=== PATIENT | female | born 1990 | race Caucasian/White ===

== ENCOUNTER 2025-01-14 13:26 | Emergency (ER) | payer OTHER, SELFPAY ==
--- NOTE | ~2025-01-14 | US_ITS ---
EXAMINATION: US OB <=14 wk fetus w TV INDICATION: bleeding, TECHNIQUE: Sonography of the pelvis was performed by transabdominal and transvaginal techniques. COMPARISON: None. RESULT: Uterus: 11.2 x 5.6 x 5.9 cm. Anteverted. Irregular appearing myometrium. 1.1 cm hypoechoic rounded fo cus in the anterior uterine body, possibly representing a small fibroid. Irregular material noted in the endometrial and endocervical canal. Hypoechoic focus in the lower uterine segment/upper cervix li nelly representing a nabothian cyst or prominent vein. Intrauterine gestational sac: A candidate gestational sac is present, with somewhat elongated morpho logy. Mean Sac Diameter: 0.54 cm, corresponding gestational age 5 week 2 days. Yolk sac: Not visuali zed. Embryo: Not seen. Subgestational hematoma: Irregular mixed echogenicity focus adjacent to the candidate gestational sac measuring 2.1 x 1.6 x 2.4 cm. Right ovary: 1.9 x 1.5 x 1.3 cm. Vascular flow was difficult to visualize due to the ovarian positi on. No adnexal mass. Left ovary: 3.0 x 2.6 x 2.8 cm. Vascular flow is present. Smoothly marginated, thin-walled cystic structure in the left ovary measuring up to 2.0 cm, with moderate surrounding vascular flow and an av ascular irregular focus adherent to the cyst wall. Pelvis free fluid: None. IMPRESSION: Likely intrauterine , of uncertain viability. A candidate gestational sac is noted. Estimate d Gestational Age: 5 weeks, 2 days by crown rump length. ROBERTO by ultrasound 09/06/2025. Recommend mercy se clinical and sonographic follow-up. 2.1 cm subcutaneous gestational hematoma. Small uterine fibroid. Heterogeneous material in the endometrial and endocervical canal, likely representing blood. Nonsimple 2.0 cm left ovarian cystic lesion, may represent an atypical corpus luteal cyst, or resolvi ng hemorrhagic cyst with clot. Imaging features are not classic for the rare entity of ovarian ectopi c . Recommend attention and follow-up examinations. Simple 1.0 cm left adnexal cyst, may represent an exophytic simple ovarian cyst, paraovarian cyst, or other simple appearing cystic lesion. Again, the imaging features this lesion are not classic for ec topic . Reviewed, dictated and finalized at location K. IMPRESSION: Likely intrauterine , of uncertain viability. A candidate gestational sac is noted. Estimated Gestational Age: 5 weeks, 2 days by crown rump length. ROBERTO by ultrasound 09/06/2025. Recommend close clinical and sonographic follow- up. 2.1 cm subcutaneous gestational hematoma. Small uterine fibroid. Heterogeneous material in the endometrial and endocervical canal, likely repres enting blood. Nonsimple 2.0 cm left ovarian cystic lesion, may represent an atypical corpus l uteal cyst, or resolving hemorrhagic cyst with clot. Imaging features are not c lassic for the rare entity of ovarian ectopic . Recommend attention an d follow-up examinations. Simple 1.0 cm left adnexal cyst, may represent an exophytic simple ovarian cyst , paraovarian cyst, or other simple appearing cystic lesion. Again, the imaging features this lesion are not classic for ectopic .
[2025-01-14 14:07] VITALS: BP 147/72; PULSE 80; RESP 16; TEMP 36.3; O2SAT 100
--- NOTE | 2025-01-14 14:53 | ED_ITS ---
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 Currently about 6 weeks . Has her first appointment next Monday. GENERAL: Well-appearing, well-nourished, and in no acute distress. HEAD: Normocephalic, atraumatic. CHEST: Clear to auscultation. ?No respiratory distress. HEART: Regular rate and rhythm.? NEURO: ?Alert and oriented x3. Patient screened in triage and initial orders placed.? ?Additional care and disposition to be based upon?diagnostic testing and treatment. <Tatiana Fay PA-C - Last Filed: 01/14/25 19:30> History of Present Illness HPI Narrative: Agree with HPI. White spotting yesterday but increased today. Left adnexal cramping that occurs typically with her menstrual cycle. . <Dylon Maza MD - Last Filed: 01/14/25 18:59> Related Data Allergies/Adverse reactions: Allergies Allergy/AdvReac Type Severity Reaction Status Date / Time No Known Allergies Allergy Verified 01/14/25 13:28 <Tatiana Fay PA-C - Last Filed: 01/14/25 19:30> Review of Systems 2 Review of Systems: All systems reviewed & are unremarkable except as noted in HPI and below <Dylon Maza MD - Last Filed: 01/14/25 18:59> Constitutional: Constitutional: Reports no additional constitutional complaints <Dylon Maza MD - Last Filed: 01/14/25 18:59> Gastrointestinal: Gastrointestinal: Reports no additional gastrointestinal complaints <Dylon Maza MD - Last Filed: 01/14/25 18:59> Genitourinary: Genitourinary: Reports no additional female genitourinary complaints <Dylon Maza MD - Last Filed: 01/14/25 18:59> Musculoskeletal: Musculoskeletal: Reports no additional musculoskeletal complaints <Dylon Maza MD - Last Filed: 01/14/25 18:59> PMFSH Past Medical History Medical History: Medical History (Updated 01/14/25 @ 18:56 by Dylon Maza MD) Healthy female adult <Tatiana Fay PA-C - Last Filed: 01/14/25 19:30> Surgical History Surgical History: Surgical History (Updated 01/14/25 @ 18:52 by Dylon Maza MD) No pertinent past surgical history <Tatiana Fay PA-C - Last Filed: 01/14/25 19:30> Exam 2 Narrative: GENERAL: Well-appearing, well-nourished, and in no acute distress. HEAD: Normocephalic, atraumatic. ENT: Mucous membranes moist. CHEST: Clear to auscultation. No respiratory distress. HEART: Regular rate and rhythm. Normal peripheral pulses. ABDOMEN: Soft, nontender, nondistended. Pelvic: Normal external genitalia. 5 cm clot removed from the cervix resulting in a polyp poking through the cervical os. No additional hemorrhage. No discharge. EXTREMITIES: Normal range of motion. No edema. SKIN: Warm, dry, no rash. NEURO: Alert and oriented x3. <Dylon Maza MD - Last Filed: 01/14/25 18:59> Course Course Emergency Course: Discussed with Dr. Slaughter for. Repeat beta hCG in 2 days. Needs follow-up in clinic. Discussed treatment plan with patient's significant other. Discussed need for blood work and close follow-up. Discussed bleeding precautions. <Dylon Maza MD - Last Filed: 01/14/25 18:59> Vital Signs Vital signs: Vital Signs Temperature 97.3 F L 01/14/25 14:07 Pulse Rate 80 01/14/25 14:07 Respiratory Rate 16 01/14/25 14:07 Blood Pressure 147/72 H 01/14/25 14:07 Pulse Oximetry 100 01/14/25 14:07 Temperature 97.3 F L 01/14/25 14:07 Pulse Rate 88 01/14/25 18:27 Respiratory Rate 14 01/14/25 18:27 Blood Pressure 126/69 01/14/25 18:27 Pulse Oximetry 100 01/14/25 18:27 <Tatiana Fay PA-C - Last Filed: 01/14/25 19:30> Vital Signs Temperature 97.3 F L 01/14/25 14:07 Pulse Rate 80 01/14/25 14:07 Respiratory Rate 16 01/14/25 14:07 Blood Pressure 147/72 H 01/14/25 14:07 Pulse Oximetry 100 01/14/25 14:07 Temperature 97.3 F L 01/14/25 14:07 Pulse Rate 88 01/14/25 18:27 Respiratory Rate 14 01/14/25 18:27 Blood Pressure 126/69 01/14/25 18:27 Pulse Oximetry 100 01/14/25 18:27 <Dylon Maza MD - Last Filed: 01/14/25 18:59> MDM - OB/Uterine Contractions Lab Data Result diagrams: 01/14/25 15:30 01/14/25 15:30 <Tatiana Fay PA-C - Last Filed: 01/14/25 19:30> Labs: Lab Results 01/14/25 Range/Units 15:30 WBC 12.2 H (4.5-10.0) K/mm3 RBC 4.36 (4.2-5.4) M/mm3 Hgb 13.3 (12.0-15.0) g/dL Hct 41.2 (37.0-47.0) % MCV 94.5 (80-100) fl MCH 30.5 (26-34) pg MCHC 32.3 (32-36) g/dl RDW 13.7 (11.5-14.5) % Plt Count 316 (150-375) k/mm3 MPV 9.3 (7.4-10.4) fl Immature Gran % (Auto) 0.5 (0-0.5) % Neut % (Auto) 69.0 (45.5-73.1) % Lymph % (Auto) 22.7 (18.3-44.2) % [place] % (Auto) 5.8 (2.6-8.5) % Eos % (Auto) 1.5 (0-4.4) % Baso % (Auto) 0.5 (0.2-1.2) % Lymph # (Auto) 2.77 (0.9-3.2) K/mm3 [place] # (Auto) 0.7 H (0.1-0.6) K/mm3 Eos # (Auto) 0.2 (0-0.3) K/mm3 Baso # (Auto) 0.1 (0.0-0.1) K/mm3 Abs Immat Gran (auto) 0.06 H (0.00-0.031) K/mm3 Absolute Neuts (auto) 8.4 H (1.3-6.7) K/mm3 Absolute Nucleated RBC 0.000 (0.0-0.012) K/mm3 Nucleated RBC % 0.0 (0.0-0.2) % PT 12.3 (11.1-14.7) Seconds INR 0.9 APTT 25.0 (22.3-36.8) Seconds Sodium 137 (137-145) mmol/L Potassium 4.2 (3.4-5.0) mmol/L Chloride 102 (98-107) mmol/L Carbon Dioxide 23 (22-30) mmol/L Anion Gap 12 (4-12) mmol/L BUN 8 (7-17) mg/dL Creatinine 0.52 L (0.7-1.0) mg/dL Estim Creat Clear Calc 103 ml/min Estimated GFR > 60 (59 - ) Glucose 112 H (65-110) mg/dL Calcium 9.9 (8.4-10.2) mg/dL Total Bilirubin 0.3 (0.2-1.3) mg/dL AST 17 (14-36) U/L ALT 17 (6-35) U/L Alkaline Phosphatase 77 (38-126) U/L Total Protein 8.0 (6.3-8.2) g/dL Albumin 4.9 (3.5-5.1) g/dL Beta HCG, Quant 7176.30 mIU/ML Blood Type B Positive Antibody Screen Negative Screen Not Reportable Baby's Blood Type Not Reportable Baby's CICI Not Reportable Doses of RhIg Required 0 <Tatiana Fay PA-C - Last Filed: 01/14/25 19:30> Lab Results 01/14/25 Range/Units 15:30 WBC 12.2 H (4.5-10.0) K/mm3 RBC 4.36 (4.2-5.4) M/mm3 Hgb 13.3 (12.0-15.0) g/dL Hct 41.2 (37.0-47.0) % MCV 94.5 (80-100) fl MCH 30.5 (26-34) pg MCHC 32.3 (32-36) g/dl RDW 13.7 (11.5-14.5) % Plt Count 316 (150-375) k/mm3 MPV 9.3 (7.4-10.4) fl Immature Gran % (Auto) 0.5 (0-0.5) % Neut % (Auto) 69.0 (45.5-73.1) % Lymph % (Auto) 22.7 (18.3-44.2) % [place] % (Auto) 5.8 (2.6-8.5) % Eos % (Auto) 1.5 (0-4.4) % Baso % (Auto) 0.5 (0.2-1.2) % Lymph # (Auto) 2.77 (0.9-3.2) K/mm3 [place] # (Auto) 0.7 H (0.1-0.6) K/mm3 Eos # (Auto) 0.2 (0-0.3) K/mm3 Baso # (Auto) 0.1 (0.0-0.1) K/mm3 Abs Immat Gran (auto) 0.06 H (0.00-0.031) K/mm3 Absolute Neuts (auto) 8.4 H (1.3-6.7) K/mm3 Absolute Nucleated RBC 0.000 (0.0-0.012) K/mm3 Nucleated RBC % 0.0 (0.0-0.2) % PT 12.3 (11.1-14.7) Seconds INR 0.9 APTT 25.0 (22.3-36.8) Seconds Sodium 137 (137-145) mmol/L Potassium 4.2 (3.4-5.0) mmol/L Chloride 102 (98-107) mmol/L Carbon Dioxide 23 (22-30) mmol/L Anion Gap 12 (4-12) mmol/L BUN 8 (7-17) mg/dL Creatinine 0.52 L (0.7-1.0) mg/dL Estim Creat Clear Calc 103 ml/min Estimated GFR > 60 (59 - ) Glucose 112 H (65-110) mg/dL Calcium 9.9 (8.4-10.2) mg/dL Total Bilirubin 0.3 (0.2-1.3) mg/dL AST 17 (14-36) U/L ALT 17 (6-35) U/L Alkaline Phosphatase 77 (38-126) U/L Total Protein 8.0 (6.3-8.2) g/dL Albumin 4.9 (3.5-5.1) g/dL Beta HCG, Quant 7176.30 mIU/ML Blood Type B Positive Antibody Screen Negative Screen Not Reportable Baby's Blood Type Not Reportable Baby's CICI Not Reportable Doses of RhIg Required 0 <Dylon Maza MD - Last Filed: 01/14/25 18:59> Imaging Data Radiologist's impression: ITS Impressions Obstetrics Ultrasound 01/14/25 17:33 IMPRESSION: Likely intrauterine , of uncertain viability. A candidate gestational sac is noted. Estimated Gestational Age: 5 weeks, 2 days by crown rump length. ROBERTO by ultrasound 09/06/2025. Recommend close clinical and sonographic follow- up. 2.1 cm subcutaneous gestational hematoma. Small uterine fibroid. Heterogeneous material in the endometrial and endocervical canal, likely representing blood. Nonsimple 2.0 cm left ovarian cystic lesion, may represent an atypical corpus luteal cyst, or resolving hemorrhagic cyst with clot. Imaging features are not classic for the rare entity of ovarian ectopic . Recommend attention and follow-up examinations. Simple 1.0 cm left adnexal cyst, may represent an exophytic simple ovarian cyst, paraovarian cyst, or other simple appearing cystic lesion. Again, the imaging features this lesion are not classic for ectopic . <Dylon Maza MD - Last Filed: 01/14/25 18:59> Critical Care Time Critical Care Time Critical Care Time: No <Tatiana Fay PA-C - Last Filed: 01/14/25 19:30> Discharge Plan Discharge Clinical Impression: Threatened miscarriage <Tatiana Fay PA-C - Last Filed: 01/14/25 19:30> Patient Disposition: Home <Tatiana Fay PA-C - Last Filed: 01/14/25 19:30> Condition: Stable <Tatiana Fay PA-C - Last Filed: 01/14/25 19:30> Instructions: Threatened Miscarriage (ED) <Tatiana Fay PA-C - Last Filed: 01/14/25 19:30> Additional Instructions: Follow-up with OB, you need repeat blood work in 2 days. Return ER if you have severe lower abdominal pain, you lose consciousness, or you have additional concerns. <Tatiana Fay PA-C - Last Filed: 01/14/25 19:30> Patient Language: Grenadian <Tatiana Fay PA-C - Last Filed: 01/14/25 19:30> Other Ambulatory Orders: Beta HCG Quantitative (Routine) Timeframe: 20250116 Facility: [facility] - Location: [facility] Laboratory Ordered By: Dylon Maza <Tatiana Fay PA-C - Last Filed: 01/14/25 19:30> Follow-up/Referrals: Bryant Smalls MD [Physician] - 3 Days PHYSICIAN,SENIOR CORPORATE RECRUITER [Non-Staff] - <Tatiana Fay PA-C - Last Filed: 01/14/25 19:30>
[2025-01-14 15:38] LABS: Basophils Absolute Auto 0.1 K/mm3 (0.0-0.1); Basophils Percent Auto 0.5 % (0.2-1.2); Eosinophils Absolute Auto 0.2 K/mm3 (0-0.3); Eosinophils Percent Auto 1.5 % (0-4.4); Hematocrit 41.2 % (37.0-47.0); Hemoglobin 13.3 g/dL (12.0-15.0); Immature Granulocyte Absolute 0.06 K/mm3 (0.00-0.031); Immature Granulocyte Percent A 0.5 % (0-0.5); Lymphocytes Absolute Auto 2.77 K/mm3 (0.9-3.2); Lymphocytes Percent Auto 22.7 % (18.3-44.2); Mean Corpuscular HGB Conc 32.3 g/dl (32-36); Mean Corpuscular Hemoglobin 30.5 pg (26-34); Mean Corpuscular Volume 94.5 fl (80-100); Mean Platelet Volume 9.3 fl (7.4-10.4); Monocytes Absolute Auto 0.7 K/mm3 (0.1-0.6); Monocytes Percent Auto 5.8 % (2.6-8.5); Neutrophils Absolute Auto 8.4 K/mm3 (1.3-6.7); Platelet Count Result 316 k/mm3 (150-375); Red Blood Count 4.36 M/mm3 (4.2-5.4); Red Cell Distribution Width 13.7 % (11.5-14.5); White Blood Count 12.2 K/mm3 (4.5-10.0)
[2025-01-14 15:48] LABS: Alanine Aminotransferase 17 U/L (6-35); Albumin Level 4.9 g/dL (3.5-5.1); Alkaline Phosphatase 77 U/L (38-126); Anion Gap 12 mmol/L (4-12); Aspartate Amino Transferase 17 U/L (14-36); Bilirubin,Total 0.3 mg/dL (0.2-1.3); Blood Urea Nitrogen 8 mg/dL (7-17); Calcium 9.9 mg/dL (8.4-10.2); Carbon Dioxide 23 mmol/L (22-30); Chloride 102 mmol/L (98-107); Estimated CRCL calculation 103 ml/min; Estimated Glomerular Filt Rate > 60; Glucose 112 mg/dL (65-110); Potassium 4.2 mmol/L (3.4-5.0); Sodium 137 mmol/L (137-145)
[2025-01-14 15:49] LABS: INR 0.9; Prothrombin Time 12.3 Seconds (11.1-14.7)
[2025-01-14 18:27] VITALS: BP 126/69; PULSE 88; RESP 14; O2SAT 100
== END 2025-01-14 19:14 | disposition home or self-care (01) ==
PROVIDERS: Physician Assistant; Emergency Provider Emergency Medicine
DX: O20.0 Threatened abortion (principal); Z3A.01 Less than 8 weeks gestation of pregnancy
CPT/HCPCS: 36415; 76801; 76817; 80053; 84702; 85025; 85461; 85610; 85730; 86850; 86900; 86901; 99284

== ENCOUNTER 2025-01-16 08:16 | Outpatient (CLI) | payer OTHER, SELFPAY | END 2025-01-16 08:17 | disposition home or self-care (01) | PROVIDERS: Visit Provider Emergency Medicine | DX: O20.0 Threatened abortion (principal); Z3A.00 Weeks of gestation of pregnancy not specified | CPT/HCPCS: 36415; 84702 ==

== ENCOUNTER 2025-01-22 10:10 | Outpatient (CLI) | payer OTHER, SELFPAY ==
--- NOTE | ~2025-01-22 | US_ITS ---
Pelvic ultrasound. Clinical History: Threatened , first trimester Technique: Realtime transabdominal and transvaginal scanning of the pelvis was performed. Color flow Doppler and Doppler spectral analysis were performed. Findings: The uterus is anteverted, and contains an intrauterine gestational sac. [place]-rump length o f 0.36 cm corresponds to an estimated gestational age of 6 weeks 0 days. heart rate is 106 bpm. Small subchronic hemorrhage measures 9 mm in maximal extent. The right ovary is not visualized. No significant right ovarian or adnexal mass is seen. The left ovary measures 4.5 x 2.7 x 3.3 cm. No significant left ovarian or adnexal mass is seen. There is no evidence of free fluid in the cul de sac. Impression: Live intrauterine gestation, with estimated gestational age of 6 weeks 0 days. heart rate is 10 6 bpm. Relative bradycardia may be related to early gestational age. Consider follow-up exam in 5-7 d ays to reassess cardiac activity. Small subchronic hemorrhage, as detailed above. Reviewed, dictated and finalized at location . Impression: Live intrauterine gestation, with estimated gestational age of 6 weeks 0 days. heart rate is 106 bpm. Relative bradycardia may be related to early gesta tional age. Consider follow-up exam in 5-7 days to reassess cardiac activity. Small subchronic hemorrhage, as detailed above.
== END 2025-01-22 10:11 | disposition home or self-care (01) ==
PROVIDERS: PCP Obstetrics & Gynecology; Visit Provider Obstetrics & Gynecology
DX: O20.0 Threatened abortion (principal); Z3A.01 Less than 8 weeks gestation of pregnancy
CPT/HCPCS: 76801; 76817

== ENCOUNTER 2025-02-07 10:16 | Outpatient (CLI) | payer OTHER, SELFPAY ==
--- NOTE | ~2025-02-07 | US_ITS ---
Pelvic ultrasound. Clinical History: First trimester for subchronic hemorrhage COMPARISON: 01/22/2025 Technique: Realtime transabdominal and transvaginal scanning of the pelvis was performed. Color flow Doppler and Doppler spectral analysis were performed. Findings: The uterus is anteverted, and contains an intrauterine gestation. [place]-rump length of 1.8 cm corresponds to an estimated gestational age of 8 weeks 1 day. heart rate is 176 bpm. Suggest ion of a somewhat ill-defined subchorionic hemorrhage measuring up to 13 mm in greatest diameter. The right ovary is not visualized. No significant right ovarian or adnexal mass is seen. The left ovary measures 2.7 x 2.4 x 2.4 cm. No significant left ovarian or adnexal mass is seen. There is no evidence of free fluid in the cul de sac. Impression: Live intrauterine gestation, with estimated gestational age of 8 weeks 1 day. heart rate is 176 bpm. Probable small subchorionic hemorrhage, as detailed above. Reviewed, dictated and finalized at location M. Impression: Live intrauterine gestation, with estimated gestational age of 8 weeks 1 day. F etal heart rate is 176 bpm. Probable small subchorionic hemorrhage, as detailed above.
== END 2025-02-07 10:17 | disposition home or self-care (01) ==
LOC: GOSHIMG 10:17
PROVIDERS: PCP Obstetrics & Gynecology; Visit Provider Obstetrics & Gynecology
DX: Z34.91 Encounter for supervision of normal pregnancy, unspecified, first trimester (principal); Z3A.08 8 weeks gestation of pregnancy
CPT/HCPCS: 76801

== ENCOUNTER 2025-07-08 10:02 | Outpatient (CLI) | payer OTHER, SELFPAY ==
[2025-07-08] VITALS (7 sets, daily range): BP systolic 108–121; BP diastolic 53–70; PULSE 71–78
[2025-07-08 10:55] LABS: Hematocrit 35.4 % (37.0-47.0); Hemoglobin 12.1 g/dL (12.0-15.0); Immature Granulocyte Percent A 0.5 % (0-0.5); Immature Platelet Fraction Pct 3.1 % (0.9-11.2); Lymphocytes Absolute Auto 1.78 K/mm3 (0.9-3.2); Mean Corpuscular HGB Conc 34.2 g/dl (32-36); Mean Corpuscular Hemoglobin 33.2 pg (26-34); Mean Corpuscular Volume 97.0 fl (80-100); Nucleated Red Blood Cells Absolute Auto 0.000 K/mm3 (0.0-0.012); Nucleated Red Blood Cells Perc 0.0 % (0.0-0.2); Platelet Count Result 233 k/mm3 (150-375); Red Blood Count 3.65 M/mm3 (4.2-5.4); White Blood Count 10.6 K/mm3 (4.5-10.0)
[2025-07-08 11:03] LABS: Add Urine Microscopic? NO; Appearance Urine Clear (Clear); Glucose Urine UA Negative (Negative); Leukocyte Esterase Ur Negative LEU/UL (Negative); Nitrate Urine Negative (Negative); Specific Grav Ur 1.005 (1.001-1.035)
[2025-07-08 11:11] LABS: Alanine Aminotransferase 21 U/L (6-35); Albumin Level 3.8 g/dL (3.5-5.1); Alkaline Phosphatase 89 U/L (38-126); Anion Gap 10 mmol/L (4-12); Aspartate Amino Transferase 29 U/L (14-36); Bilirubin,Total 0.4 mg/dL (0.2-1.3); Blood Urea Nitrogen 6 mg/dL (7-17); Calcium 9.7 mg/dL (8.4-10.2); Carbon Dioxide 20 mmol/L (22-30); Chloride 105 mmol/L (98-107); Estimated Glomerular Filt Rate > 60; Glucose 115 mg/dL (65-110); Sodium 135 mmol/L (137-145); Total Protein 7.6 g/dL (6.3-8.2); Uric Acid 4.0 mg/dL (2.5-7.5)
[2025-07-08 11:19] LABS: Potassium 3.5 mmol/L (3.4-5.0)
--- NOTE | 2025-07-08 11:50 | PC.NURSE ---
Dr. Smalls called stating he reviewed pt. labs in chart. RN stated tracing was reactive and BP in normal range. Order received to dc patient to home.
[2025-07-08 11:56] LABS: Total Protein Urine Random 17 mg/dL; Ur Ttl Prot Creatinine Ratio 1.02 mg/mg (0-0.20)
--- OUTSIDE RECORDS SUMMARY | 2025-07-08 12:06 | XMS_ITS | Clinical Summary ---
Author Organization [facility] Address [address] [place] [address] Care Team Providers Care Staking Press Operator Name Role Phone Unavailable Primary Care Provider Unavailabl e Source Comments [facility],non-owned Affiliates and Associated Physician Practices is amultiple site organization consisting of ambulatory clinics and hospital sitesin [place], [place], [place] and [place]. This disclosure is being madepursuant to the Care Everywhere program and may not contain all information available regarding this patient. Last updated 18.[facility] Allergies No known active allergies Medications * Be aware that medications may not be up to date on this document. Alwaysverify current medications with the patient. Vit-DSS-Fe Fum-FA ( vitamin with iron) tablet Take 1 (one) tablet by mouth once daily Active Active Problems Problem Noted Date Diagnosed Date Primigravida of advanced maternal age in second trimester 04/30/2025 Estimated Date of Delivery Comme nts Yes 09/18/2025 Based on Ultraso und Encounters Date Type Department Care Team Description 05/30/2025 2:02 PM CDT - 05/30/2025 11:59 PM CDT Hospital Encounter [facility] [address] [place] [address] Dav Rivas MD DIRECTOR OF COMPENSATION Discharge Disposition: Home or Self Care 05/30/2025 Travel 04/30/2025 7:22 AM CDT - 04/30/2025 11:59 PM CDT Hospital Encounter [facility] [address] [place] [address] [place], Amarilis A, MD Discharge Disposition: Home or Self Care from Last 3 Months Social History Tobacco Use Types Packs/Day Years Used Date Smoking Tobacco: Never Smokeless Tobacco: Never Tobacco Cessation:Counseling Given: Not Answered Alcohol Use Standard Drinks/Week Comments Never 0 (1 standard drink = 0.6 oz pur e alcohol) Estimated Date of Delivery Comme nts Yes 09/18/2025 Based on Ultraso und Sex and Gender Information Value Date Recorded Sex Assigned at Not on file Legal Sex Female 8:03 AM CDT Gender Identity Not on file Sexual Orientation Not on file Last Filed Vital Signs Vital Sign Reading Time Taken Comments Blood Pressure 120/71 04/30/2025 8:34 AM CDT Pulse 83 04/30/2025 8:34 AM CDT Temperature - - Respiratory Rate - - Oxygen Saturation - - Inhaled Oxygen Concentration - - Weight 60.4 kg (133 lb 3.2 oz) 04/30/2025 8:34 A M CDT Height - - Body Mass Index - - Plan of Treatment Health Maintenance Due Date Last Done Comments HIV SCREENING 2003 HEPATITIS C SCREENING 10/28/2006 DTAP/TDAP/TD VACCINES (1 - Tdap) 2007 HEPATITIS B VACCINE (1 of 3 - 19+ 3-dose series) 2007 PAP SMEAR 2009 HPV VACCINE (1 - 3-dose SCDM series) 2015 DEPRESSION SCREENING 09/18/2024 COVID-19 VACCINE (1 - 2023-2 5 season) 2025 INFLUENZA VACCINE (#1) 2025 OB-ONE HOUR GLUCOSE 06/12/2025 OB-TDAP CURRENT 06/19/2025 OB-RHOGAM INJECTION 06/26/2025 Respiratory Syncytial Virus (RSV) Vaccine Pt: or over 60 yrs (1 - Risk 1-dose series) 07/24/2025 ZOSTER VACCINE (1 of 2) 2038 HIB VACCINE Aged Out No longer eligi ble based on patient's age to complete this topic MENINGOCOCCAL (Group B) VACC INE SHARED DECISION-MAKING Aged Out No longer eligibl e based on patient's age to complete this topic MENINGOCOCCAL GROUPS A/C/Y/W VACCINE Aged Out No longer eligible b ased on patient's age to complete this topic PNEUMOCOCCAL VACCINE Aged Out No long er eligible based on patient's age to complete this topic Procedures Procedure Name Priority Date/Time Associated Diagnosis Comments SONOGRAM - COMPLETE Routine 05/30/2025 2:26 PM CDT Advanced maternal age, primigravida, antepartum (HCC) Uterine fibroid during , antepartum (HCC) Encounter for follow-up ultrasound of anatomy (HCC) Encounter for ultrasound to assess growth (HCC) Primigravida of advanced maternal age in second trimester (HCC) SONOGRAM - COMPLETE Routine 04/30/2025 7:30 AM CDT Advanced maternal age, primigravida, antepartum (HCC) Encounter for anatomic survey ([facility]) 19 weeks gestation of ([facility]) from Last 3 Months Results * Sonogram - Complete (05/30/2025 2:26 PM CDT) Only the most recent of2 resultswithin the time period is included. Linked Results Indication ======== anatomy evaluation Advanced maternal age (AMA), primigravida History ====== OB History 1 Lab Tests Test Date Result NIPT 04/30/2025 Low risk Maternal Assessment Physical Exam Height 160 cm, 5 ft 3 in. Weight 60 kg, 133 lb. Initial weight 61 kg, 135 lb. BMI 23.56 kg/m . Initial BMI 23.91 kg/m . Weight gain -1 kg, -2 lb Method ====== Transabdominal ultrasound. View: Sufficient ========= Locke . Number of fetuses: 1 Dating ====== Date Details Gest. age ROBERTO Stated ROBERTO 24 w + 1 d 09/18/2025 U/S 05/30/2025 based upon AC, BPD, Femur, HC 24 w + 4 d 09/15/2025 Assigned dating based on stated ROBERTO, selected on 04/30/2025 24 w + 1 d 09/18/2025 General Evaluation Cardiac activity present. FHR 154 bpm. Presentation: breech Placenta: Placental site: posterior Umbilical cord: Cord vessels: 3 vessel cord - previously documented. Insertion site: normal insertion - previously documented Amniotic fluid: Amount of AF: normal. MVP 4.8 cm Biometry BPD 59.7 mm 24w 3d 51% Hadlock HC 221.1 mm 24w 1d 31% Hadlock AC 208.7 mm 25w 3d 80% Hadlock Femur 43.6 mm 24w 2d 42% Hadlock Humerus 38.8 mm 23w 5d 27% Justin HC / AC 1.06 Weight Calculation: EFW 740 g 72% Hadlock EFW (lb,oz) 1 lb 10 oz EFW by Hadlock (NAQ-VD-HC-FL) appropriate Growth Overview Exam date GA BPD (mm) HC (mm) AC (mm) FL (mm) HL (mm) EFW (g) 04/30/2025 19w 6d 48 76% 170.6 33% 139.1 27% 32.4 52% 30.2 58% 308 36% 05/30/2025 24w 1d 59.7 51% 221.1 31% 208.7 80% 43.6 42% 38.8 27% 740 72% Anatomy The following structures appear normal: Heart / Thorax 4-chamber view. RVOT view. 3-yvwchq-uaruylb view. Interventricular septum. Great vessels. Abdomen Stomach. Kidneys. Bladder. The following structures were documented previously: Head / Neck Cranium. Lateral ventricles. Choroid plexus. Midline falx. Cavum septi pellucidi. Cerebellum. Cisterna magna. Thalami. Nuchal fold. Face Lips. Profile. Nose. Nasal bone. Orbits. Heart / Thorax LVOT view. 3-vessel view. Situs. Aortic arch view. Bicaval view. Ductal arch view. Right lung. Left lung. Diaphragm. Abdomen Cord insertion. Bowel. Genitals. Spine Cervical spine. Thoracic spine. Lumbar spine. Sacral spine. Extremities / Skeleton Arms. Hands. Legs. Feet. sex: female. Impression ========= Single, live, intrauterine at 24w 1d The size is appropriate. The amniotic fluid volume is normal. No major malformations were seen within the limitations of ultrasound Comment ======== ultrasound alone cannot detect all structural, genetic, or functional , placental, or maternal abnormalities Follow-up ======== Follow up ultrasound in 6 weeks for growth assessment, or as clinically indicated. Coding ====== Diagnoses O09.512: Supervision of elderly primigravida Z36.3: Encounter for screening for malformations Procedures 38023: US Preg Uterus Follow Up [employer] PACS Anatomical Region Laterality Modality Other 05/30/2025 2:26 PM CDT us Bryant Smalls MD [facility] ORDERABLES Edited Result - Final from Last 3 Months Insurance COUNTS INCLUDE 234 BEDS AT THE [facility]
== END 2025-07-08 12:15 | disposition home or self-care (01) ==
LOC: ANHOBOP 10:07 → ANHOBPP 10:07
PROVIDERS: Visit Provider Obstetrics & Gynecology
DX: O13.9 Gestational [pregnancy-induced] hypertension without significant proteinuria, unspecified trimester (principal)
CPT/HCPCS: 36415; 59025; 80053; 81003; 82570; 84156; 84550; 85025; 85055; 99199

== ENCOUNTER 2025-09-07 21:43 | Inpatient (IN) | payer OTHER, SELFPAY ==
--- OUTSIDE RECORDS SUMMARY | 2025-09-07 22:06 | XMS_ITS | Clinical Summary ---
Author Organization [facility] Address [address] [place] [address] Care Team Providers Care Extract Operator Name Role Phone Unavailable Primary Care Provider Unavailabl e Source Comments [facility],non-owned Affiliates and Associated Physician Practices is amultiple site organization consisting of ambulatory clinics and hospital sitesin [place], [place], [place] and [place]. This disclosure is being madepursuant to the Care Everywhere program and may not contain all information available regarding this patient. Last updated 18.[facility] Allergies No known active allergies Medications * [...] nts Yes 09/18/2025 Based on Ultraso und Social History Tobacco Use Types Packs/Day Years [...] DEPRESSION SCREENING 09/18/2024 COVID-19 VACCINE (1 - 2024-2 6 season) 2025 INFLUENZA VACCINE (#1) 2025 OB-ONE HOUR GLUCOSE 06/12/2025 OB-TDAP CURRENT 06/19/2025 OB-RHOGAM INJECTION 06/26/2025 OB-GROUP B STREP SCREEN 08/14/2025 ZOSTER VACCINE (1 of 2) 2038 HIB [...] on patient's age to complete this topic Respiratory Syncytial Virus (RSV) Vaccine Pt: or over 60 yrs (No Doses Required) Completed Insurance [facility]
[2025-09-07] MEDS: LACTATED RINGERS 1,000 ML 999 ML IV CONT (22:30)
[2025-09-07 22:41] LABS: Hematocrit 37.0 % (37.0-47.0); Hemoglobin 13.2 g/dL (12.0-15.0); Immature Granulocyte Percent A 0.3 % (0-0.5); Lymphocytes Absolute Auto 2.09 K/mm3 (0.9-3.2); Mean Corpuscular HGB Conc 35.7 g/dl (32-36); Mean Corpuscular Hemoglobin 33.8 pg (26-34); Mean Corpuscular Volume 94.9 fl (80-100); Nucleated Red Blood Cells Absolute Auto 0.000 K/mm3 (0.0-0.012); Nucleated Red Blood Cells Perc 0.0 % (0.0-0.2); Platelet Count Result 265 k/mm3 (150-375); Red Blood Count 3.90 M/mm3 (4.2-5.4); White Blood Count 9.6 K/mm3 (4.5-10.0)
[2025-09-07] MEDS: LACTATED RINGERS 1,000 ML 125 ML IV CONT (22:41)
[2025-09-07] MEDS: ACETAMINOPHEN 500 MG TABLET 1000 MG PO (22:42)
--- NOTE | 2025-09-07 22:44 | LDADM ---
This patient, Beata Quinn, was admitted to Labor/Delivery/Recovery 120 on 09/07/25 at 21:43. Plans for labor, pain management and were discussed with patient. Patient/family oriented to hospital policies and general routines including ID bracelet, bed and alarms, visiting hours, pain management, procedures, bathroom and other care routines, personal items, smoking policy, room service/diet and guest tray routines, security routines, and visiting hours. Patient/Family are encouraged to report perceived risks to care and to ask questions if they do not understand what they are told or what they should do. See OBIX for further documentation.
[2025-09-07 22:45] VITALS: BP 135/76; PULSE 87
--- NOTE | 2025-09-07 22:59 | P.PNAN_ITS ---
Anes - Initial Pre Proc Eval Procedure: Operation Date: 09/07/25 23:00 Proposed Procedures p Section - Sergio Akers MD Operation Date: 09/09/25 12:00 Proposed Procedures p Section - Bryant Smalls MD Date/Time: 09/07/25 22:59 Surgeon: Dr Akers Pre Op Diagnosis: Term IUP, SROM, Breech Presentation Pre Op Diagnosis: breech presentation Patient Data Age: 34 Gender: F Height: Weight: Last Vital Signs Pulse 87 09/07/25 22:45 BP 135/76 09/07/25 22:45 Allergies Allergy/AdvReac Type Severity Reaction Status Date / Time No Known Allergies Allergy Verified 09/03/25 16:01 Home Medications ?Medication ?Instructions ?Recorded ?Confirmed ?Type aspirin 81 mg tablet,delayed 81 mg PO DAILY 06/04/25 1 11/04/24 History release (Adult Low Dose Aspirin) vits no.126-ferrous fum 1 tablet PO DAILY #30 tabs 06/04/25 09/03/25 Rx 28 mg iron-folic acid 800 mcg tablet (Classic ) Laboratory Tests 09/07/25 22:35 WBC 9.6 K/mm3 (4.5-10.0) RBC 3.90 L M/mm3 (4.2-5.4) Hgb 13.2 g/dL (12.0-15.0) Hct 37.0 % (37.0-47.0) MCV 94.9 fl (80-100) MCH 33.8 pg (26-34) MCHC 35.7 g/dl (32-36) RDW 13.3 % (11.5-14.5) Plt Count 265 k/mm3 (150-375) MPV 9.9 fl (7.4-10.4) Immature Gran % (Auto) 0.3 % (0-0.5) Neut % (Auto) 70.5 % (45.5-73.1) Lymph % (Auto) 21.8 % (18.3-44.2) [place] % (Auto) 6.6 % (2.6-8.5) Eos % (Auto) 0.6 % (0-4.4) Baso % (Auto) 0.2 % (0.2-1.2) Lymph # (Auto) 2.09 K/mm3 (0.9-3.2) [place] # (Auto) 0.6 K/mm3 (0.1-0.6) Eos # (Auto) 0.1 K/mm3 (0-0.3) Baso # (Auto) 0.0 K/mm3 (0.0-0.1) Abs Immat Gran (auto) 0.03 K/mm3 (0.00-0.031) Absolute Neuts (auto) 6.8 H K/mm3 (1.3-6.7) Absolute Nucleated RBC 0.000 K/mm3 (0.0-0.012) Nucleated RBC % 0.0 % (0.0-0.2) : gestational age (, ROBERTO 09/18/25) Patient hx anesthesia problems: none Family hx anesthesia problems: none Results Review: All pre-operative results and documents have been reviewed as part of the pre- operative evaluation. [facility] Past Medical History Medical History Healthy female adult Surgical History Surgical History No pertinent past surgical history Family History Family History Mother Diabetes mellitus Sibling Breast cancer Hypertension Social History Social History Smoking packs per day: 0 Smoking cigarettes per day: 0.0 Smoking status: Never smoker Alcohol intake: never Substance use: never Lack of Transportation: No Lack of Food: Never True Current Housing: I Have Housing Concerned About Future Housing: No Difficulty Paying Gas/Electric Bills: No Difficulty Paying for Meds: No Currently Unemployed: No Education: Bachelor's Degree Difficulty w/ Childcare or Family Care: No Living arrangements: with family Additional living arrangements comments: Occupation/Education: occupation 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 Gender identity (if verbalized by the patient): Female Sexual Orientation (if Verbalized by the Patient): Straight or Heterosexual Spiritual care concerns: No Anes - Eval Final PreProcedure Day of Procedure 09/07/25 22:59 Patient weight: normal Heart: regular rate and rhythm Lungs: normal air movement Airway: Mallampati scale class II Neurological: alert and oriented Last oral intake: 6 hours ASA classification: II Emergent: no Anesthetic plan: proceed Anesthesia type and monitoring: regional (IT morphine) spinal and standard monitoring Results Review: All pre-operative results and documents have been reviewed as part of the pre- operative evaluation. Informed Consent: The patient's anesthetic plan and its attendant risks and benefits were discussed with the patient/family/POA. Questions were solicited and answers provided to the satisfaction of the patient/family/POA.
[2025-09-07 23:00] VITALS: BP 122/76; PULSE 89
[2025-09-07 23:08] VITALS: BMI 28.9
[2025-09-07 23:11] LABS: OBXCEM ROM Plus Positive (Negative)
[2025-09-07 23:15] VITALS: BP 132/73; PULSE 82
[2025-09-07 23:19] LABS: Syphilis IgG/IgM Antibody Non-Reactive (Nonreactive)
[2025-09-07 23:30] VITALS: BP 132/71; PULSE 82
[2025-09-07] MEDS: ONDANSETRON INJ 4 MG/2 ML VIAL IV PUSH (23:35)
[2025-09-07] MEDS: FAMOTIDINE 20 MG/2 ML VIAL IV PUSH (23:35)
--- NOTE | 2025-09-07 23:39 | P.HP_ITS ---
H&P: HPI History of Present Illness Date/Time: 09/07/25 23:39 Chief Complaint: Jeannette goins Narrative: 34 y/o G1 at 39 weeks who had a gush of clear fluid at about 2030 today. SROM was confirmed. She had been scheduled for primary for breech on 09/09. otherwise relatively uncomplicated. Review of Systems Review of Systems: All systems reviewed & are unremarkable except as noted in HPI and below PMFSH Past Medical History Medical History Healthy female adult Surgical History Surgical History No pertinent past surgical history Family History Family History Mother Diabetes mellitus Sibling Breast cancer Hypertension Social History Social History Smoking packs per day: 0 Smoking cigarettes per day: 0.0 Smoking status: Never smoker Second hand tobacco smoke exposure: No Alcohol intake: never Substance use: never Lack of Transportation: No Lack of Food: Never True Current Housing: I Have Housing Concerned About Future Housing: No Difficulty Paying Gas/Electric Bills: No Difficulty Paying for Meds: No Currently Unemployed: No Education: Bachelor's Degree Difficulty w/ Childcare or Family Care: No Living arrangements: with family Additional living arrangements comments: Occupation/Education: occupation 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 Gender identity (if verbalized by the patient): Female Sexual Orientation (if Verbalized by the Patient): Straight or Heterosexual Spiritual care concerns: No Meds Home Medications and Allergies Home Medications ?Medication ?Instructions ?Recorded ?Confirmed ?Type aspirin 81 mg tablet,delayed 81 mg PO DAILY 06/04/25 1 11/04/24 History release (Adult Low Dose Aspirin) vits no.126-ferrous fum 1 tablet PO DAILY #30 tabs 06/04/25 09/03/25 Rx 28 mg iron-folic acid 800 mcg tablet (Classic ) Allergies Allergy/AdvReac Type Severity Reaction Status Date / Time No Known Allergies Allergy Verified 09/07/25 23:08 Vital Signs Vital Signs - 24 hr 09/07/25 22:45 09/07/25 23:00 09/07/25 23:15 Pulse Rate 87 89 82 Blood Pressure 135/76 122/76 132/73 09/07/25 23:30 Pulse Rate 82 Blood Pressure 132/71 Exam Const: Other: Well-developed, well-nourished female in no acute distress. Neck: Other: Neck: Trachea midline, no thyromegaly or masses. Resp: Other: Lungs: Normal respiratory effort. Clear to auscultation bilaterally. Cardio: Other: Heart: Regular rate and rhythm with normal S1-S2. GI: Other: ABD: Soft, nontender, nondistended, gravid. No guarding or rebound tenderness. No hepatosplenomegaly. NST reactive, with contractions every 5-6 min. Bedside ultrasound by me confirms breech presentation. : Other: Cervix: 1cm per RN. Back/Spine/Pelvis: Other: Back: No CVA tenderness. Skin: Other: Skin: No lesions, rashes or ulcers noted. Extrem: Other: Extremities: nontender with no edema Psych: Other: Mental status grossly normal, with normal mood and affect. Results Labs Labs: Short CBC 09/07/25 Range/Units 22:35 WBC 9.6 (4.5-10.0) K/mm3 Hgb 13.2 (12.0-15.0) g/dL Hct 37.0 (37.0-47.0) % Plt Count 265 (150-375) k/mm3 Assessment and Plan Assessment and plan (1) Term : Code(s): Z34.90 - Encounter for supervision of normal , unspecified, unspecified trimester Status: Acute Assessment and Plan: A: IUP at 39 weeks with SROM, breech presentation. She is having some contractions. GBS results not in chart. P: Offered primary . She understands risks of surgery to include risks of anesthesia, risks of pain, infection, bleeding, blood products, thromboembolic phenomena and damage to adjacent structures such as bowel, bladder, ureters, blood vessels and nerves. She understands all these risks and elects to proceed with surgery. (2) SROM (spontaneous rupture of membranes): Status: Acute (3) Breech presentation of fetus: Code(s): O32.1XX0 - Maternal care for breech presentation, not applicable or unspecified Status: Acute
[2025-09-07] MEDS: ceFAZolin 2 GM in SODIUM CHLORIDE 0.9% IV 50 ML 100 ML IVPB (23:42)
--- NOTE | 2025-09-07 23:45 | WPDHPUPDATE1 ---
History and Physical Update Update Date/Time: 09/07/25 23:45 History and Physical has been reviewed, including an updated exam of the patient. There are NO changes in the patient's condition. Risks, benefits, and alternatives have been discussed and questions answered. Patient agrees to proceed with procedure.
[2025-09-08] VITALS (65 sets, daily range): BP systolic 102–174; BP diastolic 52–155; PULSE 67–169; RESP 12–16; TEMP 36.3–36.8; O2SAT 93–100
[2025-09-08] MEDS: AZITHROMYCIN IV 500 MG in SODIUM CHLORIDE 0.9% IV 250 ML IVPB (00:01)
--- NOTE | 2025-09-08 00:36 | W.PM.OBCSD ---
OB - Delivery Note Procedure Delivery date: 09/08/25 Pre-op diagnosis: Breech Presentation Post-op Diagnosis: Same Delivery monitor: External FHT and External Uterine Procedure Performed: Primary Surgeon: Sergio Akers MD Anesthesia type: Spinal Description of Procedure/Findings: Findings: Small subserosal myoma. Otherwise, unremarkable uterus, tubes and ovaries. in paula breech presentation. Techniques: The patient was taken to the operating room where she was prepared and draped in the usual sterile fashion in dorsal supine position with a leftward tilt. She received cefazolin and azithromycin preoperatively. Spinal anesthesia was found to be adequate. A Pfannenstiel skin incision was made and carried through to the underlying layer of the fascia. The fascia was incised in the midline and the incision was extended laterally. The fascia was dissected free of the underlying rectus muscles. The rectus muscles were in the midline. The peritoneum was identified, tented up and entered sharply. The peritoneal incision was extended superiorly and inferiorly with good visualization of the bladder. The bladder blade was placed. The vesicouterine peritoneum was identified, tented up and entered sharply. The incision was extended laterally and the bladder flap was developed. The bladder blade was replaced. The uterus was then incised sharply in a transverse fashion along the lower uterine segment. The incision was extended laterally. The 's breech was delivered to the level of the scapulae. The arms were swept across the chest and delivered. The head was gently flexed and easily delivered. The nose and mouth were bulb suctioned. After a delay, the cord was clamped and cut. The was handed off the field. Cord blood was collected. The placenta was removed manually and was passed off the field. The uterus was exteriorized and cleared of all clots and debris. The uterine incision was reapproximated using 0 Monocryl in a running, locked fashion. Excellent hemostasis resulted as did excellent reapproximation of the normal anatomy. The uterus was returned the abdomen. The pelvis was irrigated copiously with warmed normal saline. Rigorous hemostasis was assured. The fascial layer was reapproximated using 0 Vicryl in a running fashion. The skin was closed with a running, subcuticular stitch of 4 0 Vicryl. Dermaflex was applied externally. Sponge, lap, needle and instrument counts were correct. The patient was taken to the recovery room in stable condition. The infant went to the nursery in stable condition. I was present and scrubbed the entire procedure. Specimen: Yes (cord blood) Estimated Blood Loss: 460 Drains: Yes (Kelly) Packing: No Pathology: None sent Complications: None Condition: Stable Disposition: PACU [place] Baby Date of : 09/08/25 Time of : 00:08 Gestational Age by Date: 39 Infant gender: Female Weight (pounds): 6 Weight (ounces): 12 presentation: breech Placenta delivery description: Manual Removal and Normal Configuration Cord Vessel Description: 3 Vessels and Delayed Cord Clamping score one minute: 9 score five minutes: 9
--- NOTE | 2025-09-08 00:40 | PM.OBDSVD ---
DS: Admitting Diagnosis Admitting Diagnosis IUP at 39 weeks SROM Breech presentation DS: Discharge Diagnosis Discharge Diagnosis (1) delivery delivered: Code(s): O82 - Encounter for delivery without indication Status: Acute OB - DS: Summary OB Procedures : None OB Procedures Intrapartum: OB Procedures: : None Peripartum Data Procedures: Procedures Operation Date: 09/07/25 23:00 <No data on this case meets the specified criteria> Operation Date: 09/09/25 12:00 <No data on this case meets the specified criteria> Time Spent with Patient Time attestation: Total time spent providing and/or coordinating discharge services: DS: Data Data Completed and Pending Labs on day of discharge: Labs from last 24 hours 09/07/25 09/07/25 22:35 22:00 WBC 9.6 RBC 3.90 L Hgb 13.2 Hct 37.0 MCV 94.9 MCH 33.8 MCHC 35.7 RDW 13.3 Plt Count 265 MPV 9.9 Immature Gran % (Auto) 0.3 Neut % (Auto) 70.5 Lymph % (Auto) 21.8 [place] % (Auto) 6.6 Eos % (Auto) 0.6 Baso % (Auto) 0.2 Lymph # (Auto) 2.09 [place] # (Auto) 0.6 Eos # (Auto) 0.1 Baso # (Auto) 0.0 Abs Immat Gran (auto) 0.03 Absolute Neuts (auto) 6.8 H Absolute Nucleated RBC 0.000 Nucleated RBC % 0.0 Membranes Rupture Rom plus positive Syphilis IgG/IgM Ab Non-reactive Blood Type B Positive Antibody Screen Negative Discharge Plan Discharge Attending physician on discharge: Bryant Smalls Discharging Clinician: Bryant Smalls Patient Disposition: Home Activity: may shower, may drive after 2 weeks and pelvic rest Diet: regular Wound Care Instructions: incision open to air Discharge Instructions: Call or return if temperature above 100.4? F, increased abdominal pain, increased vaginal bleeding or any new problems. Patient Language: Macedonian Stand Alone Forms: General Discharge Information Follow-up/Referrals: Bryant Smalls MD [Physician, [employer]] - Call for Appointment Discharge Medications: No Action aspirin [Adult Low Dose Aspirin] 81 mg tablet,delayed release (DR/EC) 81 mg PO DAILY Classic 28 mg iron- 800 mcg tablet 1 tablet PO DAILY Qty: 30 3RF Date of admission: 09/07/25 21:43 Primary Care Provider: UNKNOWN,DOCTOR Admitting Provider: Bryant Smalls Attending physician on admission: Bryant Smalls Condition: Stable
[2025-09-08] MEDS: KETOROLAC 15 MG/ML VIAL (*BKC) IV PUSH ×4 (01:30→20:05)
[2025-09-08] MEDS: OXYTOCIN 30 UNITS/NS 500 ML 30 UNITS/500 ML BAG 125 UNITS IV CONT (01:30)
[2025-09-08] MEDS: DEXTROSE 5%/0.45% SOD CHL 1,000 ML 125 ML IV CONT (06:10)
[2025-09-08] MEDS: ACETAMINOPHEN 500 MG TABLET 1000 MG PO ×3 (07:44→20:05)
[2025-09-08] MEDS: SIMETHICONE 80 MG TAB.CHEW PO ×3 (07:44→20:05)
[2025-09-08] MEDS: DOCUSATE SODIUM 100 MG CAPSULE PO ×2 (07:45→20:05)
[2025-09-08] MEDS: MULTIVIT/MIN/PREN/FOL AC/IRON TABLET 1 TAB PO (07:45)
--- NOTE | 2025-09-08 08:05 | PC.NURSE ---
Consulted with patient to assess needs related to . Discussed with mother her successes, concerns and any questions she has. We reviewed working with the , supporting breast, protecting her nipples with an optimal deep latch, good positioning, and good hand washing. Encouraged understanding the benefits of skin to skin, responding to feeding cues, frequencies of feeding 8-12 times in 24 hours (approximately 2-3 hours), duration of feedings, milk production, intake/output feeding sheet and signs of adequate intake encouraging swallowing at the breast. Reviewed positioning and alignment, supporting breast, off-centered (asymmetrical latch) and leading with the chin with big, open, wide gape. latched optimally to the [right] breast in [cradle] position. Education given to the mother of how to visualize the suckling (with good rocking jaw motion) swallows (dropping of the lower jaw) and how to listen for drinking at the breast (the ka sound). The was [able] to maintain latch without discomfort to mother. Nipple care reviewed with optimal latch, good positioning and using clean hands when touching her breast. Resources used to facilitate learning were used from the [visual handouts/ tool/mom and baby guide]. Mother voiced understanding of the education shared, to call for assistance if the infant does not latch or if there is discomfort with . Reported to the Primary RN.
--- NOTE | 2025-09-08 16:52 | PC.NURSE ---
1220 Mother had called out for CLC, we attempted at the breast but would not maintain latch, mother then requested a breast pump and FOB asked for a formula bottle. We discussed the 15-- feeding plan if infant is not effective at the breast, parents were ok with that plan, if continued to not latch but would like to pump now and feed just feed the formula. Instructions were given on cleaning, care, usage, that there should be no pain, pumping schedule for milk production, collection, and storage of human milk. Patient was assessed for correct placement, flange size, to pump for comfort and nipple stretching/stimulation for adequate milk production. Parents are encouraged to record the pumping schedule on the feeding sheet.?Mother voiced understanding of the education shared along with mom/baby guide and the pump measurement, flange fit handout for additional resource information. Reported to the Primary RN. 1320 CLC RN checked in with mother after the feeding and pumping session, the Primary RN had ended up feeding infant the bottle and mother was not able to get any colostrum with the breast pump. Encouraged mother to call out with the next feeding so we could see if would latch, if not then she needed to pump again and FOB could feed a formula bottle while mother pumped. Mother agreed, she was now going to take a nap. Reported to Primary RN.
--- NOTE | 2025-09-08 17:01 | PM.OBPNVD ---
OB - PN: Subj Subjective Date/time seen: 09/08/25 17:01 S: Diet tolerated. Very well-controlled pain. Overall no complaints. O: VSS afebrile Abdomen: Positive bowel sounds soft incision dry intact Labs: Noted A: Postop day 1 status post primary due to breech presentation P: Routine postoperative care. OB - PN: Obj Data Labs 09/07/25 22:35 Labs: Laboratory Results - last 24 hr 09/07/25 09/07/25 22:00 22:35 WBC 9.6 RBC 3.90 L Hgb 13.2 Hct 37.0 MCV 94.9 MCH 33.8 MCHC 35.7 RDW 13.3 Plt Count 265 MPV 9.9 Immature Gran % (Auto) 0.3 Neut % (Auto) 70.5 Lymph % (Auto) 21.8 [place] % (Auto) 6.6 Eos % (Auto) 0.6 Baso % (Auto) 0.2 Lymph # (Auto) 2.09 [place] # (Auto) 0.6 Eos # (Auto) 0.1 Baso # (Auto) 0.0 Abs Immat Gran (auto) 0.03 Absolute Neuts (auto) 6.8 H Absolute Nucleated RBC 0.000 Nucleated RBC % 0.0 Membranes Rupture Rom plus positive Syphilis IgG/IgM Ab Non-reactive Blood Type B Positive Antibody Screen Negative OB - PN A/P Time Spent With Patient Time: Total time spent is greater than 50% in coordination of care (as documented) at patient's floor/unit and/or counseling patient:
[2025-09-09] MEDS: IBUPROFEN 600 MG TABLET PO ×4 (02:10→22:05)
[2025-09-09] MEDS: ACETAMINOPHEN 500 MG TABLET 1000 MG PO ×4 (02:10→22:05)
[2025-09-09 04:30] VITALS: BP 116/69; PULSE 66; RESP 16; O2SAT 99
[2025-09-09 06:53] LABS: Hematocrit 30.3 % (37.0-47.0); Hemoglobin 10.7 g/dL (12.0-15.0); Immature Granulocyte Percent A 0.4 % (0-0.5); Lymphocytes Absolute Auto 1.76 K/mm3 (0.9-3.2); Mean Corpuscular HGB Conc 35.3 g/dl (32-36); Mean Corpuscular Hemoglobin 34.6 pg (26-34); Mean Corpuscular Volume 98.1 fl (80-100); Nucleated Red Blood Cells Absolute Auto 0.000 K/mm3 (0.0-0.012); Nucleated Red Blood Cells Perc 0.0 % (0.0-0.2); Platelet Count Result 198 k/mm3 (150-375); Red Blood Count 3.09 M/mm3 (4.2-5.4); White Blood Count 10.3 K/mm3 (4.5-10.0)
[2025-09-09 07:30] VITALS: BP 120/72; PULSE 65; RESP 16; TEMP 36.6; O2SAT 98
[2025-09-09] MEDS: SIMETHICONE 80 MG TAB.CHEW PO ×3 (07:47→17:24)
[2025-09-09] MEDS: MULTIVIT/MIN/PREN/FOL AC/IRON TABLET 1 TAB PO ×2 (07:47→09:16)
[2025-09-09] MEDS: DOCUSATE SODIUM 100 MG CAPSULE PO ×3 (07:47→17:23)
--- NOTE | 2025-09-09 08:45 | PM.OBDSVD ---
DS: Admitting Diagnosis Discharge Date 09/10/2025 Admitting Diagnosis DS: Discharge Diagnosis Discharge Diagnosis (1) delivery delivered: Code(s): O82 - Encounter for delivery without indication Status: Acute OB - DS: Summary OB Procedures : None OB Procedures Intrapartum: low cervical, transverse OB Procedures: : None Peripartum Data Procedures: Procedures Operation Date: 09/07/25 23:00 Actual Procedure Side Surgeon p Section Sergio Akers MD Operation Date: 09/09/25 12:00 <No data on this case meets the specified criteria> Time Spent with Patient Time attestation: Total time spent providing and/or coordinating discharge services: DS: Data Data Completed and Pending Labs on day of discharge: Labs from last 24 hours 09/09/25 06:44 WBC 10.3 H RBC 3.09 L Hgb 10.7 L Hct 30.3 L MCV 98.1 MCH 34.6 H MCHC 35.3 RDW 13.6 Plt Count 198 MPV 9.8 Immature Gran % (Auto) 0.4 Neut % (Auto) 76.8 H Lymph % (Auto) 17.0 L [place] % (Auto) 4.6 Eos % (Auto) 0.8 Baso % (Auto) 0.4 Lymph # (Auto) 1.76 [place] # (Auto) 0.5 Eos # (Auto) 0.1 Baso # (Auto) 0.0 Abs Immat Gran (auto) 0.04 H Absolute Neuts (auto) 7.9 H Absolute Nucleated RBC 0.000 Nucleated RBC % 0.0 Discharge Plan Discharge Attending physician on discharge: Bryant Smalls Discharging Clinician: Bryant Smalls Patient Disposition: Home Activity: may shower, may drive after 2 weeks and pelvic rest Diet: regular Wound Care Instructions: incision open to air Discharge Instructions: Call or return if temperature above 100.4? F, increased abdominal pain, increased vaginal bleeding or any new problems. Patient Language: Malian Stand Alone Forms: General Discharge Information Follow-up/Referrals: Bryant Smalls MD [Physician, [employer]] - Call for Appointment Discharge Medications: New oxycodone 5 mg Tablet 5 mg PO Q4H PRN (Reason: Pain Rated 4-6) Qty: 30 0RF ibuprofen 600 mg Tablet 600 mg PO Q6HR Qty: 30 0RF Continued Classic 28 mg iron- 800 mcg tablet 1 tablet PO DAILY Qty: 30 3RF Discontinued aspirin [Adult Low Dose Aspirin] 81 mg tablet,delayed release (DR/EC) 81 mg PO DAILY Date of admission: 09/07/25 21:43 Primary Care Provider: UNKNOWN,DOCTOR Admitting Provider: Bryant Smalls Attending physician on admission: Bryant Smalls Condition: Stable
--- NOTE | 2025-09-09 10:50 | PC.NURSE ---
Consulted with patient to assess needs related to . Discussed with mother her successes, concerns and any questions she has. Per mother, she did not put to breast last night or use her breast pump, encouraged to use the breast pump if does not latch to protect her milk supply. We reviewed working with the infant, supporting breast, protecting her nipples with an optimal deep latch, good positioning, and good hand washing. Encouraged understanding the benefits of skin to skin, responding to feeding cues, frequencies of feeding 8-12 times in 24 hours (approximately 2-3 hours), duration of feedings, milk production, intake/output feeding sheet and signs of adequate intake encouraging swallowing at the breast. Reviewed positioning and alignment, supporting breast, off-centered (asymmetrical latch) and leading with the chin with big, open, wide gape. Infant latched optimally to the [right] breast in [football] position. Education given to the mother of how to visualize the suckling (with good rocking jaw motion) swallows (dropping of the lower jaw) and how to listen for drinking at the breast (the ka sound). The infant was [able] to maintain latch without discomfort to mother. Nipple care reviewed with optimal latch, good positioning and using clean hands when touching her breast. Resources used to facilitate learning were used from the [visual handouts/ tool/mom and baby guide]. Mother voiced understanding of the education shared, to call for assistance if the does not latch or if there is discomfort with . Declined [facility] referral. Reported to the Primary RN.
--- NOTE | 2025-09-09 14:37 | WPDANLDPN2 ---
Anes-Prog Note L&D Date/Time: 09/09/25 14:37 Comfortable throughout: section Neuraxial method: spinal Epidural/Spinal procedure site: clean & non-tender Neuro status: Neuro function grossly intact. Cardiovascular status: normal Respiratory status: normal Airway patency: baseline Mental status: baseline Post-Op hydration status: normal Vital Signs: Last Vital Signs Temp 36.6 C 09/09/25 07:30 Pulse 65 09/09/25 07:30 Resp 16 09/09/25 07:30 BP 120/72 09/09/25 07:30 Pulse Ox 98 09/09/25 07:30 O2 Del Method Room Air 09/09/25 04:30 Pain score (VAS): 2 I/O: Intake & Output 09/08/25 09/09/25 09/09/25 23:59 07:59 15:59 Intake Total 240 200 Output Total 1600 Balance -1360 200 Patient feedback: Patient satisfied with anesthetic care.
[2025-09-09 19:00] VITALS: BP 133/71; PULSE 70; RESP 16; TEMP 36.6; O2SAT 100
[2025-09-10] MEDS: ACETAMINOPHEN 500 MG TABLET 1000 MG PO ×2 (04:05→10:17)
[2025-09-10] MEDS: IBUPROFEN 600 MG TABLET PO ×2 (04:05→10:17)
[2025-09-10] MEDS: SIMETHICONE 80 MG TAB.CHEW PO (07:28)
[2025-09-10] MEDS: DOCUSATE SODIUM 100 MG CAPSULE PO (07:29)
[2025-09-10] MEDS: MULTIVIT/MIN/PREN/FOL AC/IRON TABLET 1 TAB PO (07:29)
[2025-09-10 07:40] VITALS: BP 128/77; PULSE 70; RESP 18; TEMP 36.6; O2SAT 100
--- NOTE | 2025-09-10 10:35 | PC.NURSE ---
Consulted with mother concerning needs and she shared her ability to independently latch infant optimally without pain. Educated mother again that if infant does not effectively feed at the breast that she needs to use her breast pump and then supplement the infant (see infant feeding plan in discharge instructions). Mother is feeding appropriately for growth of and understands stimulating infant to eat if needed. has had appropriate feedings in the last 24 hours meets the outcomes for weight, output, blood sugar and jaundice at this time. Reinforced understanding of milk production, transition of milk, signs of adequate intake, transition of stool, prevention/relief of engorgement, plugged ducts, mastitis, responsive watching for feeding cues, the different methods of stimulating infant to breastfeed 1-3 hours after the start of the last feeding, community resources, and when to call a provider using the resource of the feeding sheet along with the mom and baby guide. Mother voiced understanding of the information shared, is confident to continue effectively her infant at home, when to call for assistance, denies any additional assistance or education at this time. Reported to the Primary RN.
--- NOTE | 2025-09-10 11:57 | PC.NURSE ---
Patient viewed the discharge video Mother [facility] Baby Care, The First Two Weeks. Patient was given the opportunity and encouraged to ask questions. Patient verbalized understanding of information shared and has been given the mother/baby guide for home reference.
[2025-09-12 09:15] VITALS: BP 132/74; PULSE 67; RESP 20; TEMP 37; O2SAT 98
== END 2025-09-10 13:05 | disposition home or self-care (01) | DRG 788 ==
LOC: ANHLDR 09-08 00:41 → ANHOB2 09-08 03:38
PROVIDERS: Admitting Provider Obstetrics & Gynecology; Visit Provider Obstetrics & Gynecology
PROC: (CPT 59514; principal; 2025-09-07 23:00)
DX: O32.1XX0 Maternal care for breech presentation, not applicable or unspecified (principal); Z37.0 Single live birth; Z3A.39 39 weeks gestation of pregnancy; O34.13 Maternal care for benign tumor of corpus uteri, third trimester
CPT/HCPCS: 36415; 84112; 85025; 86593; 86850; 86900; 86901; J0690; A9270; J0456; J1885; J2274; J2371; J2405; J2590; J7050; J7120